=== PATIENT | female | born 1980 | race Caucasian/White ===

== ENCOUNTER 2022-12-05 19:43 | Emergency (ER) | payer OTHER, SELFPAY ==
[2022-12-05] VITALS (8 sets, daily range): BP systolic 102–123; BP diastolic 74–90; PULSE 72–100; RESP 15–18; TEMP 36.6; O2SAT 99–100; BMI 26.6
--- NOTE | 2022-12-05 19:59 | RAD_ITS ---
EXAM: XR LEFT FOREARM, 2 VIEWS CLINICAL INDICATION: fx TECHNIQUE: Frontal and lateral views of the left forearm. COMPARISON: No relevant prior studies available. FINDINGS: BONES/JOINTS: There are fractures of the midshaft of the radius and ulna. No dislocation. SOFT TISSUES: Unremarkable. RAD/Forearm 2 Views IMPRESSION: Fractures of the mid radius and ulna. Electronically Signed: New Gtz MD at 21:06 EDT ,
--- NOTE | 2022-12-05 20:01 | EDS_ITS ---
HPI History of Present Illness Chief Complaint: Upper Extremity Injury Informant: patient Occured/Mechanism Mechanism/Context: Yes fall Onset/Context/Timing Onset: Today Narrative Narrative: Patient presents after a fall with injury to her left forearm and right thumb. Patient was standing on a cooler trying to hang up something at her campsite when she lost her balance and fell. She is an obvious deformity to the left midforearm. She has abrasions and mild tenderness around the base of the right thumbnail. She denies striking her head or loss of consciousness. She is right-hand dominant. PFSH PFSH Medical History no medical history no medical history Home Medications oxycodone-acetaminophen 5 mg-325 mg tablet (Percocet) 1 tab PO Q6H PRN pain 3 days #14 tabs 12/05/22 [Rx Last Taken Unknown] Allergy/AdvReac Type Severity Reaction Status Date / Time No Known Allergies Allergy Verified 12/05/22 19:47 Social History Smoking Status: Never smoker ROS ROS ED Constitutional Constitutional ED: Denies chills or fever(s) Eyes Eyes: Denies change in vision ENT ENT ED: Denies rhinorrhea or sore throat Cardiovascular Cardiovascular: Denies chest pain or palpitations Respiratory/Chest Respiratory/Chest: Denies cough or dyspnea Gastrointestinal Gastrointestinal: Denies abdominal pain, nausea or vomiting Genitourinary Genitourinary ED: Denies dysuria Musculoskeletal Musculoskeletal: Reports extremity pain; Denies back pain Integumentary Denies Abrasions or rash Neurologic Neurologic: Denies headache(s) or weakness Psychiatric Psychiatric: Denies anxiety or depression Allergic/Immunologic Allergic/Immunologic ED: Denies lip swelling or urticaria EXAM Physical Exam Const Vital Signs: 12/05/22 19:45 Temperature 97.9 F Temperature Source Temporal Pulse Rate 100 Respiratory Rate 18 Blood Pressure 118/90 H Blood Pressure Mean 99 Pulse Ox 99 Oxygen Delivery Method Room Air Positive well nourished and well developed General Appearance ED: well developed HEENT Reports moist mucous membranes Eyes EOMs intact bilaterally Neck full ROM Chest Wall inspection of chest normal and palpation of chest normal Resp normal respiratory effort and clear to auscultation bilaterally Cardio regular rate and regular rhythm GI non-tender Extremity Extremity Narrative: Small abrasions noted around the base of the right thumbnail. Full range of motion with no bony tenderness. Patient has deformity noted to the midshaft of the left forearm. She does have strong distal pulses and can wiggle fingers. Good sensation noted distally. No tenderness at the elbow or shoulder. Neuro oriented x3 Psych mental status grossly normal MDM MDM MDM Narrative Medical decision making narrative: IV line established and patient given morphine and Zofran for pain control. X- rays of the left forearm and right hand obtained. Radiography Diagnostic Testing: Radiology Impression Forearm X-Ray 12/05/22 19:59 IMPRESSION: Fractures of the mid radius and ulna. Electronically Signed: New Gtz MD at 21:06 EDT , Hand X-Ray 12/05/22 20:13 IMPRESSION: Negative right hand x-rays. Electronically Signed: New Gtz MD at 21:06 EDT , Treatment and Re-Evaluation Narrative: Right hand x-ray per my interpretation does reveal nondisplaced fracture of the distal phalanx. Radiology interpretation is reviewed and they actually read the study as normal. There is a nondisplaced fracture and wound is cleansed and splinted with an AlumaFoam splint. Left forearm x-rays per my interpretation reveal both bone fracture with displacement. Radiology interpretation is reviewed and agrees. Patient is consented for procedural sedation. She is placed on residential monitor with oxygen and end-tidal CO2 monitoring. Patient received a total of 100 mg of IV propofol. Left forearm is splinted with an AP splint followed by a long-arm posterior splint. Following splint application she can wiggle fingers and has good sensation distally. Postreduction x-rays still show 100% displacement with fracture fragments angulated and sitting in the AP position. She is neurovascularly intact and will require surgical repair. Patient remained splinted and x-rays will be placed on a disc as she wishes to follow-up out of town. Patient be given a prescription for Percocet and will follow-up with orthopedics in [place]. Return instructions given. Procedures Procedural Sedation 1 (Initial Baseline): Consent Signed: Yes Any Problems With Anesthesia: No You/Your family experience fever (hyperthermia) w/anesthesia: No Sedation medication: Propofol Dose: 100 Route: IV Total Moderate Sedation Units: 11 Maliampati Score: Class I ASA Classification: I Discharge Plan Triage Chief Complaint: Upper Extremity Injury ED Provider: Maddie Wilburn Dx/Rx/DC Orders Clinical Impression: Forearm fracture, Thumb fracture Instructions: Fx Forearm, ED Fracture, Thumb Prescriptions: New oxycodone-acetaminophen [Percocet] 5-325 mg tablet 1 tab PO Q6H PRN (Reason: pain) 3 Days Qty: 14 0RF Primary Care Provider: Care Physician,No Primary Referrals: Adriana Tong MD [Non-Staff] - 3-5 Days NOT,DEFINED [Non-Staff] - Disposition Disposition: Home, Self Care
[2022-12-05] MEDS: Ondansetron 4 MG/2 ML Vial IV (20:06)
[2022-12-05] MEDS: Morphine 4 MG/ML Syringe IV (20:07)
--- NOTE | 2022-12-05 20:13 | RAD_ITS ---
EXAM: XR RIGHT HAND COMPLETE, 3 OR MORE VIEWS CLINICAL INDICATION: FALL TECHNIQUE: Frontal, lateral and oblique views of the right hand. COMPARISON: No relevant prior studies available. FINDINGS: BONES/JOINTS: Unremarkable. No acute fracture. No subluxation. Normal alignment. Preservation of the joint space. No sclerotic or destructive changes observed. SOFT TISSUES: Unremarkable. No soft tissue swelling or gas. No radiopaque foreign body. RAD/Hand Min 3 Views IMPRESSION: Negative right hand x-rays. Electronically Signed: New Gtz MD at 21:06 EDT ,
[2022-12-05] MEDS: Propofol 200 MG/20 ML Vial IV BOLUS (21:22)
--- NOTE | 2022-12-05 21:51 | RAD_ITS ---
EXAM: XR LEFT FOREARM, 2 VIEWS CLINICAL INDICATION: post reduction TECHNIQUE: Frontal and lateral views of the left forearm. COMPARISON: 12/05/2022 at 2023 hours FINDINGS: BONES/JOINTS: Fiberglas cast is in place. Fractures of the mid radius and ulna are present with the distal fracture fragments posterior to the proximal fracture fragments. No dislocation. SOFT TISSUES: Unremarkable. RAD/Forearm 2 Views IMPRESSION: Casting of fractures of the mid radius and ulna. Electronically Signed: New Gtz MD at 22:23 EDT ,
[2022-12-05] MEDS: oxyCODONE 5 MG Tablet PO (22:25)
== END 2022-12-05 22:30 | disposition home or self-care (01) ==
PROVIDERS: Emergency Provider Emergency Medicine; Visit Provider Emergency Medicine
DX: S52.302A Unspecified fracture of shaft of left radius, initial encounter for closed fracture (principal); S52.202A Unspecified fracture of shaft of left ulna, initial encounter for closed fracture; S60.311A Abrasion of right thumb, initial encounter; W19.XXXA Unspecified fall, initial encounter
CPT/HCPCS: 25565; 73090; 73130; 96374; 96375; 99152; 99285; J7030; A4216; J2405